=== PATIENT | female | born 1970 | race Caucasian/White ===

== ENCOUNTER 2019-04-12 19:57 | Emergency (ER) | payer OTHER ==
[~2019-04-12] VITALS: Ht 170.2 cm; Wt 104.3 kg
[~2019-04-12 19:57] MED LIST: HYDROCHLOROTH12.5 M1; NAPROSYN500 MG PO; TRAMADOL 50 MG50 MG PO; ZESTRIL40 MG
[2019-04-12 22:06] VITALS: BP 191/95
== END 2019-04-12 22:06 | disposition home or self-care (01) ==
LOC: ER 19:57
DX: S61.302A Unspecified open wound of right middle finger with damage to nail, initial encounter (principal); I10 Essential (primary) hypertension; W26.8XXA Contact with other sharp object(s), not elsewhere classified, initial encounter; Y92.89 Other specified places as the place of occurrence of the external cause; Y93.89 Activity, other specified; Y99.8 Other external cause status